=== PATIENT | male | born 1985 | race American Indian/Alaskan Native ===

== ENCOUNTER 2017-12-16 15:24 | Emergency (ER) | payer OTHER ==
[~2017-12-16] VITALS: Ht 177.8 cm; Wt 130.2 kg
--- OUTSIDE RECORDS SUMMARY | ~2017-12-16 | XMS | Clinical Summary ---
Demographics + + + | Address | [address] | | | [place] [address] | + + + | Home Phone | | + + + | Preferred Language | Unknown | + + + | Marital Status | Single | + + + | Oriental Orthodox Affiliation | Unknown | + + + | Race | Unknown | + + + | Ethnic Group | Unknown | + + + Author + + + | Author | [facility] | + + + | Organization | [facility] | + + + | Address | Unknown | + + + | Phone | Unavailable | + + + Support +--------+ +---------+ + | Name | Relationship | Address | Phone | +--------+ +---------+ + | One,No | ECON | Unknown | | +--------+ +---------+ + Care Team Providers + +------+ + | Care Emissions Testing Technician Name | Role | Phone | + +------+ + | Becky Hu PA-C | PP | | + +------+ + Allergies No Known Allergies Current Medications + + + +---------+------+------+-------+ | Prescription | Sig. | Disp. | Refills | Star | End | Statu | | | | | | t | Date | s | | | | | | Date | | | + + + +---------+------+------+-------+ | triamcinolone | Apply to wet skin on | 454 g | 3 | 05/0 | | Activ | | (KENALOG) 0.1 % | affected areas | | | 4/20 | | e | | cream | twice daily up to 5 | | | 17 | | | | | days a week. Use non | | | | | | | | medication creams | | | | | | | | on other 2 days of | | | | | | | | the week. | | | | | | + + + +---------+------+------+-------+ | adalimumab (HUMIRA | Subcutaneously | 4 each | 0 | 06/0 | | Activ | | PEN-PSORIASIS | inject 2 pens (80mg) | | | 2/20 | | e | | STARTER) 40 MG/0.8ML | on day 1, and 1 pen | | | 17 | | | | injection | (40mg) on day 8, | | | | | | | | and 1 pen (40mg) day | | | | | | | | 22. | | | | | | + + + +---------+------+------+-------+ | adalimumab | Inject 1 pen | 2 each | 3 | 09/0 | | Activ | | (HUMIRA) 40 MG/0.8ML | (40mg/0.8ml) every 2 | | | 7/20 | | e | | injection | weeks subcutaneous | | | 17 | | | | | in abdomen. | | | | | | + + + +---------+------+------+-------+ | methotrexate | Take 2 tablets by | 24 | 1 | 09/0 | | Activ | | (RHEUMATREX) 2.5 MG | mouth every 7 days | tablet | | 7/20 | | e | | tablet | for 90 days. | | | 17 | | | + + + +---------+------+------+-------+ Active Problems + + + | Problem | Noted Date | + + + | Psoriasis | 10/05/2016 | + + + | Psoriatic arthritis (HCC) | 10/05/2016 | + + + | Adalimumab (Humira) long-term use | 10/05/2016 | + + + Social History + +-------+ +--------+------+ | Tobacco Use | Types | Packs/Day | Years | Date | | | | | Used | | + +-------+ +--------+------+ | Current Some Day | | | | | | Smoker | | | | | + +-------+ +--------+------+ + + +---------+ + | Alcohol Use | Drinks/We | oz/Week | Comments | | | ek | | | + + +---------+ + | Yes | | | | + + +---------+ + + + + | Sex Assigned at | Date Recorded | | | | + + + | Not on file | | + + + Last Filed Vital Signs + + + + | Vital Sign | Reading | Time Taken | + + + + | Blood Pressure | - | - | + + + + | Pulse | - | - | + + + + | Temperature | - | - | + + + + | Respiratory Rate | - | - | + + + + | Oxygen Saturation | - | - | + + + + | Inhaled Oxygen | - | - | | Concentration | | | + + + + | Weight | 117.9 kg (260 lb) | 01/04/2017 3:12 PM PDT | + + + + | Height | 177.8 cm (5' 10") | 01/04/2017 3:12 PM PDT | + + + + | Body Mass Index | 37.31 | 01/04/2017 3:12 PM PDT | + + + + Plan of Treatment + + + + + | Health Maintenance | Due Date | Last Done | Comments | + + + + + | Vaccine: | | | | | Dtap/Tdap/Td (1 - | 4 | | | | Tdap) | | | | + + + + + | Vaccine: | | | | | Pneumococcal 19-64 | 4 | | | | Highest Risk (1 of 3 | | | | | - PCV13) | | | | + + + + + | Vaccine: Influenza | | | | | (#1) | 8 | | | + + + + + Results Not on filefrom Last 3 Months Insurance + +--------+ +------+-------+ + | Payer | Benefi | Subscriber | Type | Phone | Address | | | t Plan | ID | | | | | | / | | | | | | | Group | | | | | + +--------+ +------+-------+ + | MEDICAID | [place] | [id number] | | | [address] | | | N | | | | [place] | | | [place] | | | | [phone] | | | PHOTO CARTOGRAPHER | | | | | + +--------+ +------+-------+ + + +--------+ +--------+ + + | Guarantor Name | Accoun | Relation to | Date | Phone | Billing Address | | | t Type | Patient | of | | | | | | | | | | + +--------+ +--------+ + + | SOREN GODDARD | Person | Self [birth year] | Home: | [address] | | | [place] | | 1985 | [phone] | [place] [address] | | | [place]a | | | [phone] | | + +--------+ +--------+ + +
--- OUTSIDE RECORDS SUMMARY | ~2017-12-16 | XMS | Clinical Summary ---
Demographics + + + | Address | [address] | | | [place] [address] | + + + | Home Phone | | + + + | Preferred Language | Unknown | + + + | Marital Status | Single | + + + | Samaritan Affiliation | Unknown | + + + | Race | Unknown | + + + | Ethnic Group | Unknown | + + + Author + + + | Author | [facility] | + + + | Organization | [facility] | + + + | Address | Unknown | + + + | Phone | Unavailable | + + + Support +--------+ +---------+ + | Name | Relationship | Address | Phone | +--------+ +---------+ + | One,No | ECON | Unknown | | +--------+ +---------+ + Care Team Providers + +------+ + | Care Rock Drill Operator Name | Role | Phone | + [...] +------+-------+ + | MEDICAID | [place] | [id number] | | | [address] | | | N | | | | [place] | | | [place] | | | | [phone] | | | NEWSPAPER PEDDLER | | | | | + +--------+ [...] | Self | [birth year] | Home: | [address] | | | al/[place] | | 1985 | [phone] | [place] [address] | | | keya | | | [phone] | | + +--------+ +--------+ + +
[2017-12-16] MEDS ORDERED: CEPHALEXIN500 MG PO (20:03)
[2017-12-16] MEDS ORDERED: BACTRIM DS TAB1 EACH PO (20:03)
== END 2017-12-16 20:25 | disposition home or self-care (01) ==
LOC: ED 15:24
DX: L03.115 Cellulitis of right lower limb (principal); F17.200 Nicotine dependence, unspecified, uncomplicated
CPT/HCPCS: 93971; 99283

== ENCOUNTER 2020-01-04 07:49 | Emergency (ER) | payer OTHER ==
[~2020-01-04] VITALS: Ht 177.8 cm; Wt 130.2 kg
--- OUTSIDE RECORDS SUMMARY | ~2020-01-04 | XMS | Encounter Summary ---
Demographics + + + | Address | [address] | | | [place] [address] | + + + | Home Phone | | + + + | Preferred Language | Unknown | + + + | Marital Status | Single | + + + | Judaism Affiliation | Unknown | + + + | Race | or | + + + | Ethnic Group | Not or | + + + Author + + + | Author | [facility] | | | and [place] | + + + | Organization | [facility] | | | and [place] | + + + | Address | Unknown | + + + | Phone | Unavailable | + + + Support +--------+ +---------+ + | Name | Relationship | Address | Phone | +--------+ +---------+ + | No One | ECON | Unknown | | +--------+ +---------+ + Care Team Providers + +------+ + | Care Inside Phone Sales Name | Role | Phone | + +------+ + | Becky Hu PA-C | PCP | | + +------+ + Encounter Details +--------+ + + + + | Date | Type | Department | Care Team | Description | +--------+ + + + + | 06/02/ | Orders Only | [facility] | [facility] | | | 2017 | | [address] | [address] | | | | | [address] | [place] [address] | | | | | [place], [place] | [place] [address] | | | | | [address] | [phone] | | | | | [phone] | | | +--------+ + + + + Social History + +-------+ +--------+------+ | Tobacco Use | Types | Packs/Day | Years | Date | | | | | Used | | + +-------+ +--------+------+ | Never Assessed | | | | | + +-------+ +--------+------+ + + + | Sex Assigned at | Date Recorded | | | | + + + | Not on file | | + + + documented as of this encounter Plan of Treatment Not on filedocumented as of this encounter Visit Diagnoses Not on filedocumented in this encounter"
--- OUTSIDE RECORDS SUMMARY | ~2020-01-04 | XMS | Encounter Summary ---
Demographics + + + | Address | [address] | | | [place] [address] | + + + | Home Phone | | + + + | Preferred Language | Unknown | + + + | Marital Status | Single | + + + | Mormonism Affiliation | Unknown | + + + | Race | or | + + + | Ethnic Group | Not or | + + + Author + + + | Author | [facility] | | | and [place] | + + + | Organization | [facility] | | | [...] Team Providers + +------+ + | Care Money Order Clerk Name | Role | Phone | + +------+ + | Becky Hu PA-C | PCP | | + +------+ + Encounter Details +--------+ + + + + | Date | Type | Department | Care Team | Description | +--------+ + + + + | 05/04/ | Orders Only | [facility] | [facility] | | | 2017 | | [address] | [address] | | | | | [place], [place] | [place] | | | | | [address] | [place] [address] | | | | | [phone] | [phone] | | | | | | | | +--------+ + + + [...] Not on filedocumented as of this encounter Procedures + +--------+ + + + | Procedure Name | Priori | Date/Time | Associated Diagnosis | Comments | | | ty | | | | + +--------+ + + + | EXTERNAL LAB: CBC | Routin | 08/31/2016 | | Results for this | | | e | 3:33 PM | | procedure are in the | | | | PDT | | results section. | + +--------+ + + + | SOBEIDA POE | Routin | 08/31/2016 | | Results for this | | | e | 3:33 PM | | procedure are in the | | | | PDT | | results section. | + +--------+ + + + | HEPATITIS PANEL, | Routin | 08/31/2016 | | Results for this | | ACUTE | e | 3:33 PM | | procedure are in the | | | | PDT | | results section. | + +--------+ + + + | COMPREHENSIVE | Routin | 08/31/2016 | | Results for this | | METABOLIC PANEL | e | 3:33 PM | | procedure are in the | | | | PDT | | results section. | + +--------+ + + + documented in this encounter Results Quantiferon Gold (08/31/2016 3:33 PM PDT) + + + + + + | Component | Value | Ref Range | Performed | Pathologist | | | | | At | Signature | + + + + + + | Quantiferon | NEGATIVEComment: M. | | EXTERNAL | | | TB Gold | TUBERCULOSIS INFECTION | | LAB | | | | NOT LIKELYTHIS IS A | | | | | | QUALITATIVE TEST. THE | | | | | | IU/ML VALUES SHOULD NOT | | | | | | BE USED TOMONITOR | | | | | | DISEASE PROGRESSION OR | | | | | | RESPONSE TO THERAPY. | | | | | | DIAGNOSING OREXCLUDING | | | | | | TUBERCULOSIS DISEASE AND | | | | | | ASSESSING THE | | | | | | PROBABILITY OF | | | | | | LTBIREQUIRE A | | | | | | COMBINATION OF | | | | | | EPIDEMIOLOGICAL, | | | | | | HISTORICAL, MEDICAL | | | | | | ANDDIAGNOSTIC FINDINGS | | | | | | THAT SHOULD BE TAKEN | | | | | | INTO ACCOUNT | | | | | | WHENINTERPRETING | | | | | | QUANTIFERON TB GOLD | | | | | | RESULTS.VALUES IN IU/ML | | | | | | FOR THE TB ANTIGEN AND | | | | | | MITOGEN ARE CORRECTED | | | | | | FORBACKGROUND BY | | | | | | SUBTRACTING THE IU/ML | | | | | | VALUE OBTAINED FROM THE | | | | | | RESPECTIVENIL CONTROL. | | | | | | THESE CORRECTED VALUES | | | | | | ARE USED FOR | | | | | | INTERPRETATION OF | | | | | | THETEST RESULTS. | | | | + + + + + + | TB 1 | 0.02 | [iU]/mL | EXTERNAL | | | Antigen | | | LAB | | | Minus NIL | | | | | + + + + + + | MITOGEN | >10.00 | [iU]/mL | EXTERNAL | | | | | | LAB | | + + + + + + | QUANTIFERON | 0.02 | [iU]/mL | EXTERNAL | | | | | | LAB | | + + + + + + + + | Specimen | + + | | + + + +---------+ + + | Performing | Address | City/State/Zipcode | Phone Number | | Organization | | | | + +---------+ + + | EXTERNAL LAB | | | | + +---------+ + + Hepatitis Panel, Acute (08/31/2016 3:33 PM PDT) + + + + + + | Component | Value | Ref Range | Performed | Pathologist | | | | | At | Signature | + + + + + + | HEP A IGM | NON REACTIVE | | EXTERNAL | | | | | | LAB | | + + + + + + | HEP B | NON REACTIVE | | EXTERNAL | | | SURFACE | | | LAB | | | ANTIBODY | | | | | + + + + + + | HEP B CORE | NON REACTIVE | | EXTERNAL | | | IgM | | | LAB | | + + + + + + | HCV Ab | NON REACTIVE | | EXTERNAL | | | | | | LAB | | + + + + + + | Hepatitis | No serologic evidence of | | EXTERNAL | | | Interp.: | HAV, HBV, or HCV | | LAB | | | | infection. | | | | + + + + + + + + | Specimen | + + | Blood specimen | | (specimen) | + + + +---------+ + + | Performing | Address | City/State/Zipcode | Phone Number | | Organization | | | | + +---------+ + + | EXTERNAL LAB | | | | + +---------+ + + External Lab: CBC (08/31/2016 3:33 PM PDT) + + + + + + | Component | Value | Ref Range | Performed | Pathologist | | | | | At | Signature | + + + + + + | WBC | 7.31 | 3.80 - 11.00 | EXTERNAL | | | | | 10*3/uL | LAB | | + + + + + + | Non- | 5.44 | 4.20 - 5.70 | EXTERNAL | | | Red Blood | | 10*6/uL | LAB | | | Cells | | | | | | Counted | | | | | + + + + + + | Hemoglobin | 15.4 | 13.2 - 17.0 | EXTERNAL | | | | | g/dL | LAB | | + + + + + + | Hematocrit, | 47.5 | 39.0 - 50.0 % | EXTERNAL | | | POC | | | LAB | | + + + + + + | MCV | 87.5 | 80.0 - 100.0 fL | EXTERNAL | | | | | | LAB | | + + + + + + | MCH | 28.3 | 27.0 - 34.0 pg | EXTERNAL | | | | | | LAB | | + + + + + + | MCHC | 32.3 | 32.0 - 35.5 | EXTERNAL | | | | | g/dL | LAB | | + + + + + + | RDW-CV | 47.7 | 37 - 53 fL | EXTERNAL | | | | | | LAB | | + + + + + + | Platelet | 233 | 150 - 400 | EXTERNAL | | | Count | | 10*3/uL | LAB | | | Plasma | | | | | + + + + + + | MPV | 9.3 | fL | EXTERNAL | | | | | | LAB | | + + + + + + | Differentia | AUTOMATED | | EXTERNAL | | | l Type | | | LAB | | + + + + + + | % Segmented | 63.43 | % | EXTERNAL | | | | | | LAB | | | Neutrophils | | | | | + + + + + + | % | 19.91 | % | EXTERNAL | | | Lymphocytes | | | LAB | | + + + + + + | % Monocytes | 6.21 | % | EXTERNAL | | | | | | LAB | | + + + + + + | % | 9.40 | % | EXTERNAL | | | Eosinophils | | | LAB | | + + + + + + | % Basophils | 1.05 | % | EXTERNAL | | | | | | LAB | | + + + + + + | Absolute | 4.64 | 1.90 - 7.40 | EXTERNAL | | | Segmented | | 10*3/uL | LAB | | | Neutrophils | | | | | + + + + + + | Absolute | 1.46 | 1.00 - 3.90 | EXTERNAL | | | Lymphocytes | | 10*3/uL | LAB | | + + + + + + | Absolute | 0.45 | 0.00 - 0.80 | EXTERNAL | | | Monocytes | | 10*3/uL | LAB | | + + + + + + | Absolute | 0.69 (H) | 0.00 - 0.50 | EXTERNAL | | | Eosinophils | | 10*3/uL | LAB | | + + + + + + | Absolute | 0.08 | 0.00 - 0.10 | EXTERNAL | | | Basophils | | 10*3/uL | LAB | | + + + + + + + + | Specimen | + + | Blood specimen | | (specimen) | + + + +---------+ + + | Performing | Address | City/State/Zipcode | Phone Number | | Organization | | | | + +---------+ + + | EXTERNAL LAB | | | | + +---------+ + + Comprehensive Metabolic Panel (08/31/2016 3:33 PM PDT) + + + + + + | Component | Value | Ref Range | Performed | Pathologist | | | | | At | Signature | + + + + + + | Na | 142 | 135 - 145 | EXTERNAL | | | | | mmol/L | LAB | | + + + + + + | K | 4.1 | 3.5 - 4.9 | EXTERNAL | | | | | mmol/L | LAB | | + + + + + + | Cl | 107 | 99 - 109 mmol/L | EXTERNAL | | | | | | LAB | | + + + + + + | CO2 | 23 | 23 - 32 mmol/L | EXTERNAL | | | | | | LAB | | + + + + + + | Anion Gap | 16 | 5 - 20 mmol/L | EXTERNAL | | | | | | LAB | | + + + + + + | Glucose, | 113 (H) | 65 - 99 mg/dL | EXTERNAL | | | Fasting | | | LAB | | + + + + + + | BUN | 3 (L) | 8 - 25 mg/dL | EXTERNAL | | | | | | LAB | | + + + + + + | Creatinine | 0.9 | 0.70 - 1.30 | EXTERNAL | | | | | mg/dL | LAB | | + + + + + + | BUN/Creatin | 3 | | EXTERNAL | | | ine Ratio | | | LAB | | + + + + + + | Calcium | 8.9 | 8.5 - 10.5 | EXTERNAL | | | | | mg/dL | LAB | | + + + + + + | Protein, | 7.3 | 6.3 - 8.2 g/dL | EXTERNAL | | | Total | | | LAB | | + + + + + + | Albumin | 3.7 | 3.6 - 5.0 g/dL | EXTERNAL | | | | | | LAB | | + + + + + + | Globulin | 3.6 | 1.3 - 4.9 g/dL | EXTERNAL | | | | | | LAB | | + + + + + + | A/G Ratio | 1.0 | 1.0 - 2.4 | EXTERNAL | | | | | | LAB | | + + + + + + | Bilirubin | 0.3 | 0.1 - 1.5 mg/dL | EXTERNAL | | | Total | | | LAB | | + + + + + + | ALP, | 95 | 35 - 115 U/L | EXTERNAL | | | External | | | LAB | | + + + + + + | AST | 16 | 10 - 45 U/L | EXTERNAL | | | | | | LAB | | + + + + + + | ALT | 25 | 10 - 65 U/L | EXTERNAL | | | | | | LAB | | + + + + + + | Estimated | >60Comment: GFR <60: | mL/min/1.73_m2 | EXTERNAL | | | GFR | CHRONIC KIDNEY DISEASE, | | LAB | | | | IF FOUND OVER A 3 MONTH | | | | | | PERIOD. GFR <15: KIDNEY | | | | | | FAILURE. FOR | | | | | | AMERICANS, MULTIPLY THE | | | | | | CALCULATED GFR BY 1.210. | | | | + + + + + + + + | Specimen | + + | Blood specimen | | (specimen) | + + + +---------+ + + | Performing | Address | City/State/Zipcode | Phone Number | | Organization | | | | + +---------+ + + | EXTERNAL LAB | | | | + +---------+ + + documented in this encounter Visit Diagnoses Not on filedocumented in this encounter"
--- OUTSIDE RECORDS SUMMARY | ~2020-01-04 | XMS | Encounter Summary ---
Demographics + + + | Address | [address] | | | [place] [address] | + + + | Home Phone | | + + + | Preferred Language | Unknown | + + + | Marital Status | Single | + + + | Scientologist Affiliation | Unknown | + + + | Race | or | + + + | Ethnic Group | Not or | + + + Author + + + | Author | [facility] | | | and [place] | + + + | Organization | [facility] | | | [...] Team Providers + +------+ + | Care Manager Digital Ad Operations Name | Role | Phone | + +------+ + | Becky Hu PA-C | PCP | | + +------+ + Encounter Details +--------+ + + + + | Date | Type | Department | Care Team | Description | +--------+ + + + + | 05/04/ | Orders Only | [facility] | [facility] | | | 2017 | | [address] | [address] | | | | | [address] | [place] [address] | | | | | [place], [place] | [place] [address] | | | | | [address] | [phone] | | | | | [phone] | | | +--------+ + + + [...]
--- OUTSIDE RECORDS SUMMARY | ~2020-01-04 | XMS | Clinical Summary ---
Demographics + + + | Address | [address] | | | [place] [address] | + + + | Home Phone | | + + + | Preferred Language | Unknown | + + + | Marital Status | Single | + + + | Denominational Affiliation | Unknown | + + + | Race | or | + + + | Ethnic Group | Not or | + + + Author + + + | Author | [facility] | | | and [place] | + + + | Organization | [facility] | | | [...] Team Providers + +------+ + | Care Rubber Factory Worker Name | Role | Phone | + +------+ + | Becky Hu PA-C | PCP | | + +------+ + Allergies + + + + + + | Active Allergy | Reactions | Severity | Noted | Comments | | | | | Date | | + + + + + + | Erythromycin | Other (See Comments) | Medium | 10/11/19 | Unknown | | | | | 19 | | + + + + + + Medications + + + +---------+------+------+-------+ | Medication | Sig | Dispensed | Refills | Star | End | Statu | | | | | | t | Date | s | | | | | | Date | | | + + + +---------+------+------+-------+ | triamcinolone | Apply to wet skin on | 454 g | 3 | 05/0 | | Activ | | (KENALOG) 0.1% cream | affected areas | | | 4/20 | | e | | | twice daily up to 5 | [...] | 06/0 | | Activ | | PEN-PS/UV/ADOL HS | inject 2 pens (80mg) | | | 2/20 | | e | | START) 40 mg/0.8 mL | on day 1, and 1 pen | | | 17 | | | | injection (pen) | (40mg) on day 8, | | | | | | | | and 1 pen (40mg) day | | | | | | | | 22. | | | | | | + + + +---------+------+------+-------+ | adalimumab (HUMIRA | Inject 1 pen | 2 each | 3 | 09/0 | | Activ | | PEN) 40 mg/0.8 mL | (40mg/0.8ml) every 2 | | | 7/20 | | e | | injection (pen) | weeks subcutaneous | | | 17 | | | | | in abdomen. | | | | | | + + + +---------+------+------+-------+ Active Problems + + + | Problem | Noted Date | + + + | Psoriasis | 10/05/2016 | + + + | Psoriatic arthritis | 10/05/2016 | + + + | [...] Filed Vital Signs + + + + + | Vital Sign | Reading | Time Taken | Comments | + + + + + | Blood Pressure | - | - | | + + + + + | Pulse | - | - | | + + + + + | Temperature | - | - | | + + + + + | Respiratory Rate | - | - | | + + + + + | Oxygen Saturation | - | - | | + + + + + | Inhaled Oxygen | - | - | | | Concentration | | | | + + + + + | Weight | 117.9 kg (260 lb) | 01/04/2017 3:12 PM | | | | | PDT | | + + + + + | Height | 177.8 cm (5' 10") | 01/04/2017 3:12 PM | | | | | PDT | | + + + + + | Body Mass Index | 37.31 | 01/04/2017 3:12 PM | | | | | PDT | | + + + + + Plan of Treatment + + +-------+ + | Health Maintenance | Due Date | Last | Comments | | | | Done | | + + +-------+ + | Vaccine: | | | | | Dtap/Tdap/Td (1 - | 4 | | | | Tdap) | | | | + + +-------+ + | Vaccine: Influenza | | | | | (#1) | 0 | | | + + +-------+ + Results Not on filefrom Last 3 Months Insurance + +--------+ +--------+ +---------+--------+ | Payer | Benefi | Subscriber | Effect | Phone | Address | Type | | | t Plan | ID | hilaria | | | | | | / | | Dates | | | | | | Group | | | | | | + +--------+ +--------+ +---------+--------+ | [employer] | [employer] | [id number] | | [phone] | | Medica | | MEDICAID HMO | HEALTH | | [id number]-Pr | 1 | | id | | | MDCD | | esent | | | | | | HMO [place] | | | | | | + +--------+ +--------+ +---------+--------+ + +--------+ +--------+ + + | Guarantor Name | Accoun | Relation to | Date | Phone | Billing Address | | | t Type | Patient | of | | | | | | | | | | + +--------+ +--------+ + + | Dallin Ingram | Person | Self [birth year] | | [address] | | | al/Fam | | 1986 | [phone] | [place] [address] | | | [place] | | | 1 (Home) | | + +--------+ +--------+ + + | Dallin Ingram | Person | Self [birth year] | [address] | | | al[place] | | 1986 | [phone] | [place] [address] | | | [place] | | | 1 (Home) | | + +--------+ +--------+ + +
--- OUTSIDE RECORDS SUMMARY | ~2020-01-04 | XMS | Encounter Summary ---
Demographics + + + | Address | [address] | | | [place] [address] | + + + | Home Phone | | + + + | Preferred Language | Unknown | + + + | Marital Status | Single | + + + | Protestant Affiliation | Unknown | + + + | Race | or | + + + | Ethnic Group | Not or | + + + Author + + + | Author | [facility] | | | and [place] | + + + | Organization | [facility] | | | [...] Team Providers + +------+ + | Care Embedded Software Design Engineer Name | Role | Phone | + +------+ + | Becky Hu PA-C | PCP | | + +------+ + Encounter Details +--------+ + + + + | Date | Type | Department | Care Team | Description | +--------+ + + + + | 09/07/ | Orders Only | [facility] | [facility] | | | 2017 | | [address] | [address] | | | | | [address] | [place] | | | | | [place], [place] | [place] [address] | | | | | [address] | [phone] | | | | | [phone] | | | +--------+ + + + [...]
[~2020-01-04 07:49] MED LIST: BACTRIM DS TAB1 EACH PO; CEPHALEXIN500 MG PO
[2020-01-04] MEDS ORDERED: FUROSEMIDE20 MG (08:08)
[2020-01-04] MEDS ORDERED: K-TAB ER20 MEQ (08:09)
--- NOTE | 2020-01-04 13:22 | EKG ---
[facility] [address] [facility] [place], [place] [address] Signed Sinus tachycardia Otherwise normal ECG No previous ECGs available Confirmed by GEOVANNY BAINS MD ([id number]) on 01/04/2020 1:22:12 PM Electronically Signed By: GEOVANNY BAINS MD 01/04/20 1322 PATIENT NAME: SOREN GODDARD QUE Electrocardiogram DATE OF : [birth year] PHYSICIAN: GEOVANNY BAINS MD REPORT #: [id number] REPORT IS CONFIDENTIAL AND NOT TO BE RELEASED WITHOUT AUTHORIZATION
== END 2020-01-04 09:40 | disposition home or self-care (01) ==
LOC: ED 07:49
DX: R07.89 Other chest pain (principal); R06.02 Shortness of breath; I10 Essential (primary) hypertension; F17.200 Nicotine dependence, unspecified, uncomplicated; Z79.899 Other long term (current) drug therapy
CPT/HCPCS: 71045; 80053; 83690; 84484; 85025; 93005; 93010; 99285-25

== ENCOUNTER 2023-03-29 08:52 | Emergency (ER) | payer OTHER ==
[~2023-03-29 08:52] MED LIST changes: +FUROSEMIDE20 MG; +K-TAB ER20 MEQ
[2023-03-29] MEDS ORDERED: ZESTRIL5 MG PO (09:05)
[2023-03-29] MEDS ORDERED: HYDROCHLOROTH12.5 MG PO (09:06)
[2023-03-29 09:23] LABS: BASOPHILS 0.7 % (0-2); EOSINOPHILS 3.4 % (0-6); HEMATOCRIT 41.8 % (35.0-50.0); HEMOGLOBIN 13.8 g/dL (12.0-18.0); MCH 28.4 (27-36); MCHC 33.1 g/dl (30-36); MONOCYTES 5.2 % (0-12); NEUTROPHILS 82.7 % (39-80); PLATELET COUNT 320 K/uL (140-440); RBC 4.86 M/ul (4.3-5.7); RDW 14.9 (10.5-15.0)
[2023-03-29 09:38] LABS: ALBUMIN 3.3 g/dL (3.4-5.0); ALBUMIN/GLOBULIN RATIO 0.92 (1.1-2.4); ANION GAP 17.4 (7-21); BILIRUBIN, TOTAL 0.7 ng/dL (0.2-1.0); BUN/CREATININE RATIO 6.25 (6.0-28.6); CALCIUM 8.3 mg/dL (8.5-10.1); CREATININE, SERUM 1.28 mg/dL (0.70-1.30); POTASSIUM 3.4 mmol/L (3.5-5.1); PROTEIN, TOTAL 6.9 g/dL (6.4-8.2)
[2023-03-29 09:56] LABS: BILIRUBIN, URINE NEGATIVE (negative); BLOOD/HGB, URINE NEGATIVE (Negative); KETONE, URINE NEGATIVE (Negative); LEUK ESTERASE, URINE NEGATIVE (negative); NITRITE, URINE NEGATIVE (negative)
[2023-03-29 10:03] LABS: INFLUENZA B NAA NEGATIVE (NEGATIVE); RESPIRATORY SYNCYTIAL VIR NAA NEGATIVE (NEGATIVE)
[2023-03-29 11:18] LABS: LACTIC ACID, BLOOD 2.4 mmol/L (0.4-2.0)
[2023-03-29 12:19] VITALS: BP 123/62
--- NOTE | 2023-03-29 21:06 | EKG ---
[facility] [address] [facility] [place] [address] Signed Sinus tachycardia Otherwise normal ECG When compared with ECG of 04-JAN-2020 08:12, No significant change was found Confirmed by Regulo Marie MD () on 03/29/2023 9:05:54 PM Electronically Signed By: REGULO MARIE MD 03/29/232105 PATIENT NAME: SOREN GODDARD QUE Electrocardiogram DATE OF : 83 PHYSICIAN: REGULO MARIE MD REPORT #: [id number] REPORT IS CONFIDENTIAL AND NOT TO BE RELEASED WITHOUT AUTHORIZATION
== END 2023-03-29 12:20 | disposition home or self-care (01) ==
LOC: ED 08:52
PROVIDERS: Student in an Organized Health Care Education/Training Program
DX: E86.0 Dehydration (principal); I10 Essential (primary) hypertension; F17.200 Nicotine dependence, unspecified, uncomplicated; Z79.899 Other long term (current) drug therapy; Z20.822 Contact with and (suspected) exposure to COVID-19
CPT/HCPCS: 36415; 71045; 80053; 81003; 83605; 85025; 87502; 93005; 93010; 96360; 96361; 99285-25; J7030; U0002

== ENCOUNTER 2025-03-17 01:28 | Emergency (ER) | payer OTHER ==
[~2025-03-17] VITALS: Ht 177.8 cm; Wt 138.0 kg
[~2025-03-17 01:28] MED LIST changes: +CEFUROXIME500 MG PO; +ENBREL50 MG/1 ML SUB-Q; +HYDROCHLOROTH12.5 MG PO; +HYDROCODON-ACE1 EA11 PO; +ZESTRIL20 MG PO
[2025-03-17] MEDS ORDERED: MORPHINE SULFATE 4 MG/ML VIAL IV ONE (02:00)
[2025-03-17 02:03] LABS: MCH 27.7 PG (25.7-32.2); MCHC 32.6 g/dL (32.3-36.5); MCV 85.0 fL (79.0-92.2); RBC 5.01 M/uL (4.63-6.08)
[2025-03-17 02:16] LABS: BANDS, MANUAL DIFF 18; EOSINOPHILS, MANUAL DIFF 2; LYMPHOCYTES, MANUAL DIFF 9; MONOCYTES, MANUAL DIFF 8; NEUTROPHILS, MANUAL DIFF 63
[2025-03-17 02:21] LABS: AST (SGOT) 15.0 U/L (15-37); GLOMERULAR FILTRATION RATE,EST 64.0 mL/min (>60); PROTEIN, TOTAL 5.9 g/dL (6.4-8.2); UREA NITROGEN 14.0 mg/dL (7-18)
[2025-03-17 02:43] LABS: ALT (SGPT) 23.0 U/L (14-59)
[2025-03-17] MEDS ORDERED: LASIX20 MG PO (02:52)
[2025-03-17] MEDS ORDERED: HYDROCODON-ACE1 EA10 PO (02:53)
[2025-03-17] MEDS ORDERED: ONDANSETRON ODT8 MG PO (02:53)
[2025-03-17] MEDS ORDERED: DOXYCYCLINE HYCLATE 100 MG HOME.PACK PO ONE (03:00)
[2025-03-17] MEDS ORDERED: HYDROCODONE BIT/ACETAMINOPHEN 5/325 MG 1 TAB HOME.PACK PO ONE (03:00)
[2025-03-17 04:46] VITALS: BP 96/60
--- NOTE | 2025-03-17 19:02 | EKG ---
[facility] [address] [facility] [place] [address] Signed Sinus tachycardia Otherwise normal ECG When compared with ECG of 05-MAY-2023 13:53, No significant change was found Confirmed by Regulo Marie MD () on 03/17/2025 7:02:06 PM Electronically Signed By: REGULO MARIE MD 03/17/251901 PATIENT NAME: SOREN GODDARD QUE Electrocardiogram DATE OF : 83 PHYSICIAN: REGULO MARIE MD REPORT #: [id number] REPORT IS CONFIDENTIAL AND NOT TO BE RELEASED WITHOUT AUTHORIZATION
== END 2025-03-17 03:45 | disposition home or self-care (01) ==
LOC: ED 01:28
PROVIDERS: Family Medicine
DX: L03.116 Cellulitis of left lower limb (principal); R60.0 Localized edema; I10 Essential (primary) hypertension; F17.200 Nicotine dependence, unspecified, uncomplicated; Z79.899 Other long term (current) drug therapy
CPT/HCPCS: 36415; 80053; 85025; 93005; 93010; 96374; 99284-25; A9270; J2270